=== PATIENT | female | born 1990 | race Caucasian/White ===

== ENCOUNTER → 2020-10-08 11:05 | Outpatient (BNVA) | payer OTHER, SELFPAY | PROVIDERS: Visit Provider Nurse Practitioner Family | DX: Z20.828 Contact with and (suspected) exposure to other viral communicable diseases (principal) | CPT/HCPCS: 87635 ==

== ENCOUNTER → 2021-04-25 12:12 | Outpatient (BNVA) | payer MEDICAID, SELFPAY | PROVIDERS: Visit Provider Registered Nurse Neonatal Intensive Care | DX: R05 Cough (principal) | CPT/HCPCS: 71046 ==

== ENCOUNTER → 2022-02-18 15:21 | Outpatient (BNVA) | payer SELFPAY | PROVIDERS: Visit Provider Nurse Practitioner | DX: J02.9 Acute pharyngitis, unspecified (principal) | CPT/HCPCS: 87880 ==

== ENCOUNTER 2023-02-03 15:25 | Emergency (ER) | payer MEDICAID, SELFPAY ==
[2023-02-03 15:31] VITALS: BP 163/106; PULSE 65; TEMP 36.4; O2SAT 100; BMI 36.3
--- NOTE | 2023-02-03 16:05 | CTR_ITS ---
PROCEDURE INFORMATION: Exam: CT Abdomen And Pelvis Without Contrast Exam date and time: 02/03/2023 4:41 PM Age: 32 years old Clinical indication: Abdominal pain; Flank; Right; Prior surgery; Surgery type: C-sect; Additional info: Right flank pain TECHNIQUE: Imaging protocol: Computed tomography of the abdomen and pelvis without contrast. Radiation optimization: All CT scans at this facility use at least one of these dose optimization techniques: automated exposure control; mA and/or kV adjustment per patient size (includes targeted exams where dose is matched to clinical indication); or iterative reconstruction. REPORTING DATA: Count of CT and Cardiac NM exams in prior 12 months: This patient has received 0 known CTs and 0 known cardiac nuclear medicine studies in the 12 months prior to the current study. COMPARISON: US OB limited [id number] 07/15/2019 3:22 PM RADIATION DOSE METRICS: Total DLP (mGy-cm): 1225.95 FINDINGS: Liver: Normal. No mass. Gallbladder and bile ducts: Normal. No calcified stones. No ductal dilation. Pancreas: Normal. No ductal dilation. Spleen: Normal. No splenomegaly. Adrenal glands: Normal. No mass. Kidneys and ureters: 5 mm obstructing calculus in the proximal right ureter with mild hydronephrosis. 1 mm right renal calculus. Left renal cyst, Hounsfield units less than 20. No follow-up imaging is recommended. Stomach and bowel: Unremarkable. No obstruction. No mucosal thickening. Appendix: The appendix is visualized and is normal. Intraperitoneal space: Unremarkable. No free air. No significant fluid collection. Vasculature: Unremarkable. No abdominal aortic aneurysm. Lymph nodes: Unremarkable. No enlarged lymph nodes. Urinary bladder: Unremarkable as visualized. Reproductive: Tampon in the vagina. The uterus and ovaries are unremarkable. Bones/joints: Bone island in the left femoral head. No fracture. Soft tissues: Unremarkable. CT/CT kidney stone [id number] IMPRESSION: 1. 5 mm obstructing calculus in the proximal right ureter with mild hydronephrosis. 2. 1 mm right renal calculus. COMMENTS: Consistent with the [employer]'s Incidental Findings Committee white paper (J Am Andreas Radiol 2018): Any incidental renal lesion less than 1 cm or classified as too small to characterize, or any incidental cystic renal lesion characterized as simple-appearing, is likely benign. No follow-up imaging is recommended for these lesions per consensus recommendations based on imaging criteria.
[2023-02-03 16:18] LABS: Basophils % 0.4 %; Eosinophils # 0.3 10^3/uL (0.0-0.8); Hematocrit 44.7 % (37.0-47.0); Hemoglobin 14.4 g/dL (11.5-15.3); Lymphocytes # 2.8 10^3/uL (0.8-4.8); Lymphocytes % 24.6 %; Mean Corpuscular HGB Conc 32.2 g/dL (30.0-36.0); Mean Corpuscular Volume 90.1 fl (81-99); Mean Platelet Volume 11.1 fL (7.4-10.4); Monocytes # 0.8 10^3/uL (0.2-0.9); Monocytes % 7.5 %; Neutrophils # 7.16 10^3/uL (1.8-7.7); Neutrophils % 64.2 %; Nucleated Red Blood Cells % 0 %; Platelet Count 294 10^3/cmm (130-400); Red Blood Count 4.96 10^6/uL (4.1-5.3); Red Cell Distribution Width 12.6 % (12.1-15.1); White Blood Count 11.2 10^3/uL (4.0-10.0)
[2023-02-03 16:35] LABS: HCG, Serum Qual Negative (Negative)
[2023-02-03 16:38] LABS: Alanine Aminotransferase 47 U/L (0-33); Albumin Level 4.1 g/dL (3.5-5.2); Alkaline Phosphatase 65 U/L (35-105); Anion Gap 14.6 (5-19); Blood Urea Nitrogen 12 mg/dL (6-20); Calcium 9.5 mg/dL (8.5-10.5); Carbon Dioxide 25 mmol/L (22-29); Chloride 101 mmol/L (98-107); Globulin 4.3 g/dL (1.3-4.6); Glomerular Filtration Rate 117.4 mL/min (90-130); Glucose 119 mg/dL (65-115); Lipase 29 U/L (13-60); Osmolality Calculated 285 mOsm/kg (285-295); Potassium 3.6 mmol/L (3.5-5.1); Sodium 137 mmol/L (136-145); Total Bilirubin 0.2 mg/dL (0.15-1.2); Total Protein 8.4 g/dL (6.6-8.7)
[2023-02-03 16:45] LABS: Aspartate Amino Transferase 29 U/L (0-32)
[2023-02-03] MEDS: ondansetron 2 mg/ML SDV 2 mL 4 MG IVP (16:53)
[2023-02-03 16:54] VITALS: RESP 18; O2SAT 99
[2023-02-03] MEDS: morphine 4 mg/mL SDV 1 mL IVP (16:54)
--- NOTE | 2023-02-03 16:56 | ED_ITS ---
HPI - Abdominal Pain General: Chief Complaint: Abdominal Pain Stated Complaint: right side abd pain Time Seen by Provider: 02/03/23 15:59 History of Present Illness: This patient is a 32 year old presenting with right flank pain since around 10 this morning. She says that she has had some period cramps since last night but started having the back pain on the right side and now some in the anterior right flank as well. She has had kidney stones in the past, but it's been a long time and she wasn't sure if this felt the same. She still has her appendix. She denies urinary symptoms. She has had nausea, no vomiting, no fever. Period is normal and on time. PFS ED PFSH: Family History Father Hypertension Diabetes Denies family history of Dementia Social History (Updated 04/25/21 @ 11:24 by Cyrus Landeros LPN) Smoking and tobacco status: never smoked Second hand smoke exposure: No Alcohol intake: never Desire information about alcohol rehabilitation?: No Desire information about substance/drug rehabilitation?: No Adopted: No Physical Exam Const: COMMON NORMALS: no acute distress, patient oriented x3, no limitations and alert GENERAL APPEARANCE: cooperative and comfortable HENMT: HEAD & SCALP: normal to inspection FACE & SINUS: normal facial exam Eye: GENERAL EYE: appearance normal, both eyes and all related structures Neck/C-Spine: COMMON NORMALS: supple, no meningeal signs and no JVD Chest: COMMONS NORMALS: normal inspection of the chest Resp: COMMON NORMALS: normal respiratory effort, No use of accessory muscles and clear to auscultation bilaterally AUSCULTATION: clear to auscultation bilaterally Cardio: COMMON NORMALS: no JVD, regular rate, regular rhythm and No murmurs present (Cardio) RATE: regular rate RHYTHM: regular rhythm GI: COMMON NORMALS: Normal to inspection, nondistended, normoactive bowel sounds present, Soft to palpation and non-tender INSPECTION: Yes normal to inspection AUSCULTATION: Yes normoactive bowel sounds PALPATION: Yes Soft to palpation and Yes Tenderness to palpation present (GI) Details: RLQ Back/Pelvis: COMMON NORMALS: thoracic and lumbar spine normal to inspection Extremity: COMMON NORMALS: normal to inspection Neuro: COMMON NORMALS: patient oriented x3, moves all extremities, no focal motor deficits and no sensory deficits noted SENSORIUM/ORIENTATION: Yes alert MENINGEAL SIGNS: Yes no meningeal signs Psych: COMMON NORMALS: mental status grossly normal, cooperative and normal affect Skin: COMMON NORMALS: no rashes or lesions noted and turgor normal GENERAL SKIN EXAM: no rashes or lesions noted and turgor normal Course Vital Signs: Vital signs: Vital Signs Temperature 97.5 F L 02/03/23 15:31 Pulse Rate 66 02/03/23 18:09 Respiratory Rate 18 02/03/23 16:54 Blood Pressure 114/71 02/03/23 18:09 Pulse Oximetry 96 02/03/23 18:09 Oxygen Delivery Me thod 02/03/23 18:09 MDM - Abdominal Pain Medical Decision Making Right flank pain - history of kidney stones. Colicky type pain. Pain control, CT for stones vs appendicitis vs ovarian pathology. Pain gone after morphine, zofran and toradol. CT shows a 5 mm stone, proximal right ureter. I interpreted the CT myself and also discussed and reviewed the images with the patient and her . Patient ok with outpatient management. She has seen Dr. alaniz before (many years ago) Discussed return precautions. Lab Data 02/03/23 16:06 02/03/23 16:06 Labs/Radiology: Radiology Impressions Abdomen/Pelvis CT 02/03/23 16:05 IMPRESSION: 1. 5 mm obstructing calculus in the proximal right ureter with mild hydronephrosis. 2. 1 mm right renal calculus. COMMENTS: Consistent with the [employer]'s Incidental Findings Committee white paper (J Am Andreas Radiol 2018): Any incidental renal lesion less than 1 cm or classified as too small to characterize, or any incidental cystic renal lesion characterized as simple-appearing, is likely benign. No follow-up imaging is recommended for these lesions per consensus recommendations based on imaging criteria. Laboratory Results WBC 11.2 10^3/uL (4.0-10.0) H 02/03/23 16:06 RBC 4.96 10^6/uL (4.1-5.3) 02/03/23 16:06 Hgb 14.4 g/dL (11.5-15.3) 02/03/23 16:06 Hct 44.7 % (37.0-47.0) 02/03/23 16:06 MCV 90.1 fl (81-99) 02/03/23 16:06 MCH 29.0 pg (28.0-34.0) 02/03/23 16:06 MCHC 32.2 g/dL (30.0-36.0) 02/03/23 16:06 RDW 12.6 % (12.1-15.1) 02/03/23 16:06 Plt Count 294 10^3/cmm (130-400) 02/03/23 16:06 MPV 11.1 fL (7.4-10.4) H 02/03/23 16:06 Neut % (Auto) 64.2 % 02/03/23 16:06 Lymph % (Auto) 24.6 % 02/03/23 16:06 [place] % (Auto) 7.5 % 02/03/23 16:06 Eos % (Auto) 3.0 % 02/03/23 16:06 Baso % (Auto) 0.4 % 02/03/23 16:06 Neut # (Auto) 7.16 10^3/uL (1.8-7.7) 02/03/23 16:06 Lymph # (Auto) 2.8 10^3/uL (0.8-4.8) 02/03/23 16:06 [place] # (Auto) 0.8 10^3/uL (0.2-0.9) 02/03/23 16:06 Eos # (Auto) 0.3 10^3/uL (0.0-0.8) 02/03/23 16:06 Baso # (Auto) 0.0 10^3/uL (0.0-0.1) 02/03/23 16:06 Nucleated RBC % (auto) 0 % 02/03/23 16:06 Nucleated RBCs # 0.0 /100WBC 02/03/23 16:06 Sodium 137 mmol/L (136-145) 02/03/23 16:06 Potassium 3.6 mmol/L (3.5-5.1) 02/03/23 16:06 Chloride 101 mmol/L (98-107) 02/03/23 16:06 Carbon Dioxide 25 mmol/L (22-29) 02/03/23 16:06 Anion Gap 14.6 (5-19) 02/03/23 16:06 BUN 12 mg/dL (6-20) 02/03/23 16:06 Creatinine 0.6 mg/dL (0.5-0.9) 02/03/23 16:06 GFR Calculation 117.4 mL/min (90-130) 02/03/23 16:06 Glucose 119 mg/dL (65-115) H 02/03/23 16:06 Calculated Osmolality 285 mOsm/kg (285-295) 02/03/23 16:06 Calcium 9.5 mg/dL (8.5-10.5) 02/03/23 16:06 Total Bilirubin 0.2 mg/dL (0.15-1.2) 02/03/23 16:06 AST 29 U/L (0-32) 02/03/23 16:06 ALT 47 U/L (0-33) H 02/03/23 16:06 Alkaline Phosphatase 65 U/L (35-105) 02/03/23 16:06 Total Protein 8.4 g/dL (6.6-8.7) 02/03/23 16:06 Albumin 4.1 g/dL (3.5-5.2) 02/03/23 16:06 Globulin 4.3 g/dL (1.3-4.6) 02/03/23 16:06 Lipase 29 U/L (13-60) 02/03/23 16:06 HCG, Qual Negative (Negative) 02/03/23 16:06 Urine Color Yellow (Yellow) 02/03/23 16:00 Urine Appearance Hazy (CLEAR) A 02/03/23 16:00 Urine pH 5 (5-7) 02/03/23 16:00 Ur Specific [place] 1.030 (1.005-1.030) 02/03/23 16:00 Urine Protein 1+ (Negative) H 02/03/23 16:00 Urine Glucose (UA) Norm (Normal) 02/03/23 16:00 Urine Ketones Negative (Negative) 02/03/23 16:00 Urine Blood 3+ (Negative) H 02/03/23 16:00 Urine Nitrate Negative (Negative) 02/03/23 16:00 Urine Bilirubin Neg (Negative) 02/03/23 16:00 Urine Urobilinogen Norm mg/dL (Negative) 02/03/23 16:00 Ur Leukocyte Esterase Negative (Negative) 02/03/23 16:00 Urine RBC >100 /hpf (0-2) H 02/03/23 16:00 Urine WBC 5-10 /hpf (0-5) H 02/03/23 16:00 Ur Squamous Epith Cells 5-10 /hpf (0-5) H 02/03/23 16:00 Amorphous Sediment Not Reportable 02/03/23 16:00 Urine Bacteria 1+ /hpf (NONE) H 02/03/23 16:00 Discharge Plan Discharge Patient Disposition: Home Clinical Impression: Renal colic on right side, Right kidney stone Condition: Stable Prescriptions: New oxycodone 5 mg tablet 5 mg PO Q6H PRN (Reason: pain) Qty: 14 0RF promethazine 25 mg tablet 25 mg PO TID PRN (Reason: nausea and vomiting) Qty: 10 0RF Discontinued escitalopram oxalate [Lexapro] 10 mg tablet 10 mg PO DAILY amoxicillin-pot clavulanate 875-125 mg tablet 1 tab PO Q12H 7 Days Qty: 14 0RF methylprednisolone [Medrol ([place])] 4 mg tablets,dose pack See Rx Instructions PO PER PKG DIR Qty: 21 0RF Rx Instructions: PO PER PKG DIR No Action albuterol sulfate [ProAir HFA] 90 mcg/actuation HFA aerosol inhaler 2 puff inhalation Q6H PRN (Reason: shortness of breath or wheezing) Qty: 8.5 0RF Discharge Orders: Discharge ED (Routine); Ordered 02/03/23 Ordered By: Tiny Shine Referrals: Juliette Mosley FNP [Primary Care Provider] - Alex Alaniz MD [Physician] - Patient Instructions: Abdominal Pain (ED), Opioid Safety, Pain Management Activity Restrictions/Additional Instructions: You can take 600 mg (3 over the counter tabs) every 6 hours if needed for pain. Ibuprofen works well for kidney stones. Take the oxycodone and phenergan as well for pain and nausea. You may take these along with ibuprofen. Return to the ED if fever, unable to urinate, vomiting or uncontrolled pain. Coding Level of Care Code ED Adhesive Primer for Lucy Lucio
[2023-02-03 16:58] VITALS: BP 140/86; PULSE 64; O2SAT 98
[2023-02-03] MEDS: ketorolac 30 mg/mL INJ 15 MG IVP (17:01)
[2023-02-03 17:31] LABS: Add Urine Culture? Yes; Add Urine Microscopic? YES; Bacteria Urine 1+ /hpf; Bilirubin Urine Neg (Negative); Blood Urine 3+ (Negative); Glucose Urine UA Norm (Normal); Ketones Urine Negative (Negative); Leukocyte Esterase Urine Negative (Negative); Nitrate Urine Negative (Negative); Protein Urine 1+ (Negative); RBC Urine >100 /hpf (0-2); Urine Appearance Hazy (CLEAR); Urine Color Yellow (Yellow); Urobilinogen Urine Norm (Negative); pH Urine 5 (5-7)
[2023-02-03 18:09] VITALS: BP 114/71; PULSE 66; O2SAT 96
== END 2023-02-03 18:24 | disposition home or self-care (01) ==
PROVIDERS: General Practice; Emergency Provider Emergency Medicine; PCP Nurse Practitioner Family
DX: N13.2 Hydronephrosis with renal and ureteral calculous obstruction (principal)
CPT/HCPCS: 74176; 80053; 81001; 83690; 84703; 85025; 87086; 96374; 96375; 99285; J1885; J2270; J2405

== ENCOUNTER 2023-02-12 07:46 | Outpatient (CLI) | payer MEDICAID, SELFPAY ==
--- NOTE | 2023-02-12 07:57 | XR_ITS ---
WS: [id number] XR KUB [id number] REASON FOR EXAM: Stones FINDINGS: Mid right ureteral calculus in the same position (right L4 transverse process level) as demonstrated on the CT scan of 02/03/2023. No other significant or new findings. XR/XR KUB [id number] IMPRESSION: Right ureteral calculus as above.
== END 2023-02-12 07:47 | disposition home or self-care (01) ==
LOC: RAD 07:50
PROVIDERS: PCP Nurse Practitioner Family; Visit Provider Urology
DX: N20.0 Calculus of kidney (principal); N20.1 Calculus of ureter
CPT/HCPCS: 74018; 81003; 99203

== ENCOUNTER 2023-02-26 06:57 | Outpatient (CLI) | payer MEDICAID, SELFPAY ==
--- NOTE | 2023-02-26 07:05 | XR_ITS ---
WS: [id number] KUB, AP erect view, 02/26/2023 Clinical Data: STONES Comparison: KUB, 02/12/2023 Findings: No abnormal intraabdominal masses are seen. There is no dilatated small bowel or evidence of obstruct ion. There is a calcification in the right pelvis which is probably the ureteral calculus which has migrat ed into the bladder or right UVJ Impression: Probable migration of right mid ureteral calculus into the bladder or right UVJ.
== END 2023-02-26 06:58 | disposition home or self-care (01) ==
LOC: RAD 06:59
PROVIDERS: PCP Nurse Practitioner Family; Visit Provider Urology
DX: N20.0 Calculus of kidney (principal); N20.1 Calculus of ureter
CPT/HCPCS: 74018; 81003; 99213

== ENCOUNTER 2023-10-27 10:22 | Emergency (ER) | payer MEDICAID, SELFPAY ==
[2023-10-27] VITALS (8 sets, daily range): BP systolic 109–144; BP diastolic 75–97; PULSE 87–92; RESP 17; TEMP 36.8; O2SAT 97–98
[2023-10-27 11:07] LABS: Basophils % 0.2 %; Eosinophils # 0.2 10^3/uL (0.0-0.8); Eosinophils % 2.7 %; Hematocrit 46.7 % (36-47); Lymphocytes # 1.8 10^3/uL (0.8-4.8); Lymphocytes % 21.7 %; Mean Corpuscular Hemoglobin 29.4 pg (27-33); Mean Corpuscular Volume 89.1 fl (85-98); Mean Platelet Volume 10.9 fL (7.4-10.4); Monocytes # 0.4 10^3/uL (0.2-0.9); Monocytes % 5.3 %; Neutrophils # 5.65 10^3/uL (1.8-7.7); Neutrophils % 69.9 %; Nucleated Red Blood Cells % 0 %; Platelet Count 265 10^3/cmm (157-399); Red Blood Count 5.24 10^6/uL (3.85-5.65); Red Cell Distribution Width 12.8 % (12.1-15.1)
[2023-10-27 12:19] LABS: Alanine Aminotransferase 47 U/L (0-33); Albumin Level 4.7 g/dL (3.5-5.2); Alkaline Phosphatase 62 U/L (35-105); Anion Gap 17.2 (5-19); Aspartate Amino Transferase 33 U/L (0-32); Blood Urea Nitrogen 11 mg/dL (6-20); Calcium 10.1 mg/dL (8.5-10.5); Carbon Dioxide 23 mmol/L (22-29); Chloride 101 mmol/L (98-107); Glomerular Filtration Rate 116.6 mL/min (90-130); Glucose 112 mg/dL (65-115); Osmolality Calculated 284 mOsm/kg (285-295); Potassium 4.2 mmol/L (3.5-5.1); Sodium 137 mmol/L (136-145); Total Bilirubin 0.4 mg/dL (0.15-1.2); Total Protein 8.7 g/dL (6.6-8.7)
[2023-10-27 12:28] LABS: Glucose Urine UA Norm (Normal); Ketones Urine 1+ (Negative); Protein Urine 1+ (Negative); Specific Gravity, Urine 1.025 (1.005-1.030); Urine Appearance Cloudy (CLEAR); Urine Color Yellow (Yellow); pH Urine 5 (5-7)
[2023-10-27 12:29] LABS: Add Urine Culture? Yes; Bacteria Urine 2+ /hpf; Bilirubin Urine 1+ (Negative); Blood Urine 3+ (Negative); Leukocyte Esterase Urine 2+ (Negative); Nitrate Urine Negative (Negative); RBC Urine 15-25 /hpf (0-2); Urobilinogen Urine Norm (Negative); WBC Urine 25-40 /hpf (0-5)
--- NOTE | 2023-10-27 12:43 | USR_ITS ---
PROCEDURE INFORMATION: Exam: US Pelvis, Transvaginal Exam date and time: 10/27/2023 1:19 PM Age: 33 years old Clinical indication: Other: Bleeding; Patient HX: Hcg 1369; Additional info: Vaginal bleeding /cramping TECHNIQUE: Imaging protocol: Real-time transvaginal pelvic ultrasound with image documentation. Transvaginal imaging was used for better evaluation of the endometrium, adnexa, and/or cervix. COMPARISON: CT kidney stone [id number] 02/03/2023 4:41 PM FINDINGS: Uterus: Uterus is normal, and measures 3.3 x 3.7 x 6.9 centimeters. Endometrial stripe is normal, measuring 0.8 centimeters. No intrauterine . No uterine fibroids. Right ovary/adnexa: 2.4 x 1.6 x 2 centimeters. Normal. No mass. Normal ovarian blood flow. Left ovary/adnexa: 2.3 x 1.9 x 3.5 centimeters. Left ovarian cyst measuring 1.1 centimeters. Normal. No mass. Normal ovarian blood flow. Intraperitoneal space: Simple free fluid in the right adnexa. US/US transvaginal [id number] IMPRESSION: 1. No intrauterine . 2. Preserved bilateral intra-ovarian blood flow. 3. Simple free fluid in the right adnexa. There is no evidence of intrauterine , in the setting of a positive beta-HCG and no ultrasonographic evidence of intrauterine gestation; ectopic cannot be ruled out. Serial Beta hCG examinations are recommended.
[2023-10-27] MEDS: acetaminophen 500 mg Tablet 1000 MG PO (13:02)
[2023-10-27] MEDS: cefTRIAXone 1,000 MG in sodium chloride 0.9% (plus) 50 ML 100 MG IV (13:07)
--- NOTE | 2023-10-27 13:08 | ED_ITS ---
HPI - 2 General: Chief complaint: Vaginal Bleeding Stated complaint: bleeding, 6 weeks Time Seen by Provider: 10/27/23 10:33 History of Present Illness: 33-year-old female presents to the emerg ency department with complaints that she started having some vaginal bleeding this morning. She states that she noticed a small amount after having a bowel movement. She states that has since stopped but she feels like she is having some vaginal pain at this point. She denies noticing clots or tissue. She states she is approximately 6 weeks but has not had her first [facility] appointment. She states she became concerned because the bleeding appeared to be bright red vaginal bleeding. And shortly afterwards she stated she started having some intermittent lower abdominal cramping. She does appear to be very tearful and nervous. Date of Last Menstrual Period: 09/15/23 Related Data: : 2 Review of Systems 2 General: Reports: 10 or more systems reviewed and unremarkable except in HPI and below GI: Reports: GI cramping : Reports: vaginal bleeding PFSH ED 2 PFSH: Medical History No pertinent past medical history neghx: htn,dm,thyroid,dvt/pe PCP: Juliette Mosley Surgical History H/O: Classical Family History Father Hypertension Diabetes Heart disease Hyperlipidemia Grandmother Colon cancer maternal Denies family history of Ovarian cancer Prostate cancer Dementia Breast cancer Uterine cancer Thyroid disease Stroke Female Reproductive History: Date of last menstrual period: 09/15/23 G ravida: 2 Physical Exam 2 Narrative: EXAM NARRATIVE: Constitutional: the patient appears well nourished and with normal development. Vital signs reviewed as documented. HENMT: Normocephalic, atraumatic. Extermal ears with normal appearance without drainage. Nose without drainage, normal appearance. Mucus membranes moist. Neck is supple, No jugular venous distension, trachea is midline, no appreciable carotid bruits. No lymphadenopathy. No meningeal signs. Flexion, extension and lateral rotation is without pain. Eyes: Pupils are equal, round, reactive to light and accommodation. No scleral icterus. Extra-ocular movement are intact. Thorax is symmetrical and with equal rise and fall with respirations. Resp: Lungs are clear to auscultation. No wheezes, rales, crackles or ronchi at present. Cardio: Regular rate and rhythm. Positive S1, S2. No appreciable murmurs, rubs or gallops. GI: Abdominal exam reveals normal bowel sounds to all quadrants. No organomegaly. No obvious palpable masses noted. No hepatomegally appreciated. Soft, nontender to palpation. Extremity: Extremities are non-edematous and both femoral and pedal pulses are 2+ and equal bilaterally. Moves all extremities well, sensation in all extremities. Neuro: Alert and oriented x4, person, place, time and situation. Cranial nerves II through XII are grossly intact, there is no focal neurological deficits that I can appreciate at present. Motor strength in the upper and lower extremities are equal and bilateral 5/5. Psych: Cooperative, calm, normal thought process, appropriate judgment. Skin: No lesions, rashes. No gross abnormalities noted. Back: Symmetrical, no obvious deformity, No CVA tenderness Course 2 Vital Signs: Vital signs: Vital Signs Temperature 98.2 F 10/27/23 10:33 Pulse Rate 92 10/27/23 14:59 Respiratory Rate 17 10/27/23 10:33 Blood Pressure 125/89 10/27/23 14:59 Pulse Oximetry 98 10/27/23 14:59 Oxygen Delivery Me thod Room Air 10/27/23 14:19 MDM - OB/Uterine Contractions Medical Decision Making Physical exam completed and documented, I will obtain a CBC, CMP urinalysis and quantitative hCG. I will obtain a ultrasound to confirm intrauterine and evaluate her vaginal bleeding. I reviewed the patient's urinalysis and it does appear that she has urinary tract infection I will provide her IV antibiotics as well as Tylenol pain medication for her abdominal cramping. Medical Records I reviewed the patient's medical records. Lab Data I reviewed the patient's lab results. 10/27/23 10:58 10/27/23 10:58 Radiology Impressions Transvaginal US 10/27/23 12:43 IMPRESSION: 1. No intrauterine . 2. Preserved bilateral intra-ovarian blood flow. 3. Simple free fluid in the right adnexa. There is no evidence of intrauterine , in the setting of a positive beta-HCG and no ultrasonographic evidence of intrauterine gestation; ectopic cannot be ruled out. Serial Beta hCG examinations are recommended. Laboratory Results WBC 8.10 10^3/uL (3.29-11.43) 10/27/23 10:58 RBC 5.24 10^6/uL (3.85-5.65) 10/27/23 10:58 Hgb 15.40 g/dL (11.27-16.99) 10/27/23 10:58 Hct 46.7 % (36-47) 10/27/23 10:58 MCV 89.1 fl (85-98) 10/27/23 10:58 MCH 29.4 pg (27-33) 10/27/23 10:58 MCHC 33.0 g/dL (30-55) 10/27/23 10:58 RDW 12.8 % (12.1-15.1) 10/27/23 10:58 Plt Count 265 10^3/cmm (157-399) 10/27/23 10:58 MPV 10.9 fL (7.4-10.4) H 10/27/23 10:58 Neut % (Auto) 69.9 % 10/27/23 10:58 Lymph % (Auto) 21.7 % 10/27/23 10:58 [place] % (Auto) 5.3 % 10/27/23 10:58 Eos % (Auto) 2.7 % 10/27/23 10:58 Baso % (Auto) 0.2 % 10/27/23 10:58 Neut # (Auto) 5.65 10^3/uL (1.8-7.7) 10/27/23 10:58 Lymph # (Auto) 1.8 10^3/uL (0.8-4.8) 10/27/23 10:58 [place] # (Auto) 0.4 10^3/uL (0.2-0.9) 10/27/23 10:58 Eos # (Auto) 0.2 10^3/uL (0.0-0.8) 10/27/23 10:58 Baso # (Auto) 0.0 10^3/uL (0.0-0.1) 10/27/23 10:58 Nucleated RBC % (auto) 0 % 10/27/23 10:58 Nucleated RBCs # 0.0 /100WBC 10/27/23 10:58 Sodium 137 mmol/L (136-145) 10/27/23 10:58 Potassium 4.2 mmol/L (3.5-5.1) 10/27/23 10:58 Chloride 101 mmol/L (98-107) 10/27/23 10:58 Carbon Dioxide 23 mmol/L (22-29) 10/27/23 10:58 Anion Gap 17.2 (5-19) 10/27/23 10:58 BUN 11 mg/dL (6-20) 10/27/23 10:58 Creatinine 0.6 mg/dL (0.5-0.9) 10/27/23 10:58 GFR Calculation 116.6 mL/min (90-130) 10/27/23 10:58 Glucose 112 mg/dL (65-115) 10/27/23 10:58 Calculated Osmolality 284 mOsm/kg (285-295) L 10/27/23 10:58 Calcium 10.1 mg/dL (8.5-10.5) 10/27/23 10:58 Total Bilirubin 0.4 mg/dL (0.15-1.2) 10/27/23 10:58 AST 33 U/L (0-32) H 10/27/23 10:58 ALT 47 U/L (0-33) H 10/27/23 10:58 Alkaline Phosphatase 62 U/L (35-105) 10/27/23 10:58 Total Protein 8.7 g/dL (6.6-8.7) 10/27/23 10:58 Albumin 4.7 g/dL (3.5-5.2) 10/27/23 10:58 Globulin 4.0 g/dL (1.3-4.6) 10/27/23 10:58 Ser , Semi-Qnt 1369.00 mIU/mL 10/27/23 10:58 Urine Color Yellow (Yellow) 10/27/23 11:07 Urine Appearance Cloudy (CLEAR) A 10/27/23 11:07 Urine pH 5 (5-7) 10/27/23 11:07 Ur Specific [place] 1.025 (1.005-1.030) 10/27/23 11:07 Urine Protein 1+ (Negative) H 10/27/23 11:07 Urine Glucose (UA) Norm (Normal) 10/27/23 11:07 Urine Ketones 1+ (Negative) H 10/27/23 11:07 Urine Blood 3+ (Negative) H 10/27/23 11:07 Urine Nitrate Negative (Negative) 10/27/23 11:07 Urine Bilirubin 1+ (Negative) H 10/27/23 11:07 Urine Urobilinogen Norm mg/dL (Negative) 10/27/23 11:07 Ur Leukocyte Esterase 2+ (Negative) H 10/27/23 11:07 Urine RBC 15-25 /hpf (0-2) H 10/27/23 11:07 Urine WBC 25-40 /hpf (0-5) H 10/27/23 11:07 Ur Squamous Epith Cells 5-10 /hpf (0-5) H 10/27/23 11:07 Amorphous Sediment Not Reportable 10/27/23 11:07 Urine Bacteria 2+ /hpf (NONE) H 10/27/23 11:07 All radiology interpretation(s) finalized by discharge Discharge Plan Discharge Patient Disposition: Home Clinical Impression: Vaginal bleeding during , Urinary tract infection Condition: Stable Prescriptions: No Action albuterol sulfate 90 mcg/actuation HFA aerosol inhaler 2 puff inhalation Q6H PRN tramadol 50 mg tablet 50 mg PO BID PRN prednisone 10 mg tablets,dose pack See Rx Instructions PO PER PKG DIR Qty: 21 0RF Rx Instructions: PO PER PKG DIR hydroxyzine HCl 10 mg tablet 10 mg PO .HS PRN (Reason: anxiety) Qty: 14 0RF acetaminophen 325 mg capsule 325 mg PO Q4H PRN (Reason: fever or pain) Qty: 60 0RF Discharge Orders: Discharge ED (Routine); Ordered 10/27/23 Ordered By: Zhou Tamez Referrals: Juliette Mosley FNP [Primary Care Provider] - Discharge Diet: Advance as tolerated Discharge Activity: Resume usual activity Patient Instructions: Opioid Safety, Pain Management Activity Restrictions/Additional Instructions: Activity Restrictions/Additional Instructions: Thank you for choosing [facility] for your healthcare needs today. Please realize that you were seen in the Emergency Department and that we are providing you with an emergency medical screening exam and this may not be a complete and all inclusive of all the testing and or medical work-up that you may need to determine your ailment or severity of your illness. It is very important that you follow-up as instructed with your Primary care provider or Specialist for additional evaluation and to discuss your medical treatment plan. You may return to the Emergency Department should you have concerns or if your condition changes or worsens in any way. Coding Level of Care Code ED Chief Merchandising Officer for Lucy Lucio
== END 2023-10-27 15:05 | disposition home or self-care (01) ==
PROVIDERS: Emergency Provider Internal Medicine; PCP Nurse Practitioner Family
DX: O46.91 Antepartum hemorrhage, unspecified, first trimester (principal); O23.11 Infections of bladder in pregnancy, first trimester; Z3A.01 Less than 8 weeks gestation of pregnancy
CPT/HCPCS: 76830; 80053; 81001; 84702; 85025; 87086; 96365; 96366; 99284; J0696

== ENCOUNTER → 2023-10-29 09:42 | Outpatient (BNVA) | payer MEDICAID, SELFPAY | PROVIDERS: PCP Nurse Practitioner Family; Visit Provider Nurse Practitioner Women's Health | DX: Z32.00 Encounter for pregnancy test, result unknown (principal); O20.0 Threatened abortion; Z3A.00 Weeks of gestation of pregnancy not specified | CPT/HCPCS: 81025; 84702 ==

== ENCOUNTER 2023-10-30 14:02 | Outpatient (CLI) | payer MEDICAID, SELFPAY ==
[2023-10-30 14:39] LABS: Basophils % 0.4 %; Eosinophils # 0.3 10^3/uL (0.0-0.8); Eosinophils % 3.4 %; Lymphocytes # 2.2 10^3/uL (0.8-4.8); Lymphocytes % 22.9 %; Mean Corpuscular HGB Conc 33.3 g/dL (30-55); Mean Corpuscular Hemoglobin 29.4 pg (27-33); Mean Corpuscular Volume 88.1 fl (85-98); Mean Platelet Volume 11.6 fL (7.4-10.4); Monocytes # 0.7 10^3/uL (0.2-0.9); Monocytes % 6.9 %; Neutrophils # 6.24 10^3/uL (1.8-7.7); Neutrophils % 66.2 %; Nucleated Red Blood Cells % 0 %; Platelet Count 299 10^3/cmm (157-399); Red Blood Count 4.77 10^6/uL (3.85-5.65); White Blood Count 9.43 10^3/uL (3.29-11.43)
== END 2023-10-30 14:03 | disposition home or self-care (01) ==
LOC: LAB 14:03
PROVIDERS: PCP Nurse Practitioner Family; Visit Provider Nurse Practitioner Women's Health
DX: O20.0 Threatened abortion (principal); Z3A.00 Weeks of gestation of pregnancy not specified
CPT/HCPCS: 36415; 76817; 85025; 86850; 86900

== ENCOUNTER 2023-10-31 13:08 | Oncology outpatient (recurring) (ONCR) | payer SELFPAY ==
--- OUTSIDE RECORDS SUMMARY | 2023-10-31 13:11 | XMS_ITS | Continuity of Care Document ---
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 Name Role Phone Unavailable Unavailable Unavailable Problems Condition Type Effective Dates (start - stop) Clini josh Status Comments No Known Problems Procedures Procedure Date PSYTX PT&/FAMILY 30 MINUTES PSYTX PT&/FAMILY 30 MINUTES PSYTX PT&/FAMILY 30 MINUTES Advance Directives Directive Yes / No Effective Date File Name No Information Encounters Encounter Description Practice Location Reason(s) For Visit Diagnoses Date Provider Providers Copied on Encounter PSYTX PT&/FAMILY 30 MINUTES [facility], [id number], [id number], [place] tel:[phone] Behavioral Health Integration Adjustment disorder with mixed anxiety and depressed mood Dec-1 - 9 No Information PSYTX PT&/FAMILY 30 MINUTES [facility], [id number], [id number], [place] tel:[phone] Behavioral Health Integration Adjustment disorder with mixed anxiety and depressed mood Dec-1 0- 9 No Information PSYTX PT&/FAMILY 30 MINUTES [facility], [id number], [id number], [place] tel:[phone] Behavioral Health Integration Adjustment disorder with mixed anxiety and depressed mood Dec-0 -201 9 No Information Family History Family Member Type Diagnosis Age At Onset No Information Payers Payer name Insurance type Covered libertarian ID Authoriza tion(s) No Information Social History Type Description Quantity Date Captured Comments Sex Female Smoking Status No Information Chief Complaint And Reason For Visit No Information Reason For Referral Reason For Referral No Information History Of Present Illness Encounter Date Complaint History Of Prese nt Illness No Information Functional Status Date Functional Assessmen t No Information Instructions Date Instruction Additional Infor mation No Information Assessments Type Assessment Date assessment Adjustment disorder with mixed a nxiety and depressed mood Patient Care Teams Name Effective Dates (start - stop) Status Members No Information
[2023-10-31 14:20] VITALS: BP 120/82; PULSE 85; RESP 16; TEMP 36.8; O2SAT 99
[2023-10-31 14:33] VITALS: BP 117/82; PULSE 83; RESP 16; TEMP 37.1; O2SAT 98
[2023-10-31 14:40] VITALS: BP 119/86; PULSE 78; RESP 16; O2SAT 99
== END 2023-11-10 23:59 | disposition home or self-care (01) ==
LOC: ONCMED 13:10
PROVIDERS: PCP Nurse Practitioner Family; Visit Provider Obstetrics & Gynecology
DX: O00.90 Unspecified ectopic pregnancy without intrauterine pregnancy (principal)
CPT/HCPCS: 84702; J9260

== ENCOUNTER 2023-11-04 21:41 | Observation (INO) | payer SELFPAY ==
[2023-11-04 21:45] VITALS: BP 134/96; PULSE 87; RESP 17; TEMP 37.1; O2SAT 100; BMI 37.5
--- NOTE | 2023-11-04 22:26 | USR_ITS ---
PROCEDURE INFORMATION: Exam: US Pelvis Complete, Transabdominal and US Pelvis, Transvaginal Exam date and time: 11/04/2023 10:53 PM Age: 33 years old Clinical indication: Patient HX: Patient was diagnosed with left ectopic on 10/30 here, referred to Dr. Moe 10/31. Methotrexate injection 10/31. Now complaining of continued vaginal bleeding and increased left pelvic pain. ; Additional info: Pelvic pain HX ectopic. LABS AND CLINICAL REPORTS: Last menstrual period start date: Unknown TECHNIQUE: Imaging protocol: Real-time complete transabdominal and transvaginal pelvic ultrasound with image documentation. Transvaginal imaging was used for better evaluation of the endometrium, adnexa, and/or cervix. COMPARISON: US OB <=14 wk fetus w transvag 10/27/2023 1:19 PM FINDINGS: Uterus: Uterus measures 8 cm x 4.9 cm x 3.8 cm. 8.0 x 3.8 x 4.9 cm. In homogeneous endometrium measuring 12.7 mm. Right ovary/adnexa: Right ovary measures 1.6 cm x 1.8 cm x 0.9 cm. Right ovarian volume is 1.3 mL. Normal blood flow. Left ovary/adnexa: Left ovary measures 2.1 cm x 2.4 cm x 1.5 cm. Left ovarian volume is 3.8 mL. Stable 1.1 cm follicle or cyst. Normal blood flow. 2.6 x 2.6 x 5.1 cm inhomogeneous structure with internal vascularity posterior and inferior to the left ovary. No ectopic gestational sac or pole is visualized. Intraperitoneal space: No intraperitoneal fluid. Urinary bladder: Normal. US/US pelvic limited [id number] IMPRESSION: 1. No intrauterine gestation identified. 2. Persistent 5.1 cm inhomogeneous structure posterior and inferior to the left ovary. This remains suspicious for a residual ectopic . No gestational sac or pole is visualized. Correlation with quantitative beta HCG values is recommended. 3. No free intraperitoneal blood visualized.
[2023-11-04 22:35] VITALS: RESP 18; O2SAT 97
[2023-11-04] MEDS: morphine 4 mg/mL SDV 1 mL IVP (22:35)
[2023-11-04] MEDS: ondansetron 2 mg/ML SDV 2 mL 4 MG IVP ×2 (22:36→23:33)
[2023-11-04 22:50] LABS: Basophils % 0.3 %; Eosinophils # 0.2 10^3/uL (0.0-0.8); Eosinophils % 3.3 %; Hematocrit 40.4 % (36-47); Lymphocytes # 1.6 10^3/uL (0.8-4.8); Mean Corpuscular HGB Conc 32.2 g/dL (30-55); Mean Corpuscular Hemoglobin 29.1 pg (27-33); Mean Corpuscular Volume 90.4 fl (85-98); Mean Platelet Volume 11.1 fL (7.4-10.4); Monocytes # 0.4 10^3/uL (0.2-0.9); Monocytes % 6.7 %; Neutrophils # 4.05 10^3/uL (1.8-7.7); Neutrophils % 64.4 %; Nucleated Red Blood Cells % 0 %; Platelet Count 272 10^3/cmm (157-399); Red Blood Count 4.47 10^6/uL (3.85-5.65); Red Cell Distribution Width 12.8 % (12.1-15.1); White Blood Count 6.29 10^3/uL (3.29-11.43)
[2023-11-04 23:09] LABS: Alanine Aminotransferase 36 U/L (0-33); Albumin Level 4.2 g/dL (3.5-5.2); Alkaline Phosphatase 56 U/L (35-105); Anion Gap 15.7 (5-19); Aspartate Amino Transferase 22 U/L (0-32); Blood Urea Nitrogen 7 mg/dL (6-20); C Reactive Protein 39.3 mg/L (0.0-4.9); Calcium 10.1 mg/dL (8.5-10.5); Carbon Dioxide 27 mmol/L (22-29); Chloride 101 mmol/L (98-107); Globulin 3.8 g/dL (1.3-4.6); Glomerular Filtration Rate 116.6 mL/min (90-130); Glucose 92 mg/dL (65-115); Lipase 20 U/L (13-60); Osmolality Calculated 288 mOsm/kg (285-295); Potassium 3.7 mmol/L (3.5-5.1); Sodium 140 mmol/L (136-145); Total Bilirubin 0.2 mg/dL (0.15-1.2)
[2023-11-04 23:10] LABS: Lactic Sepsis W/Reflex 1.1 mmol/L (0.5-2.2)
[2023-11-04 23:12] LABS: Add Urine Microscopic? YES; Bacteria Urine 1+ /hpf; Bilirubin Urine Neg (Negative); Blood Urine 3+ (Negative); Glucose Urine UA Norm (Normal); Ketones Urine 1+ (Negative); Leukocyte Esterase Urine 1+ (Negative); Nitrate Urine Negative (Negative); Protein Urine Trace (Negative); RBC Urine 80-100 /hpf (0-2); Urine Appearance Cloudy (CLEAR); Urine Color Yellow (Yellow); Urobilinogen Urine Norm (Negative); WBC Urine 25-40 /hpf (0-5); pH Urine 6 (5-7)
[2023-11-04 23:13] LABS: Add Urine Culture? Yes; Amorphous Sediment Urine 1+ /hpf; Coarse Granular Casts Urine 0-4 /lpf; Mucus Urine 2+ /hpf
--- NOTE | 2023-11-04 23:28 | ED_ITS ---
Documented by User: RENATE Castro 11/05/23 00:54 HPI - Abdominal Pain 2 General: Chief Complaint: Abdominal Pain Stated Complaint: abd pain/pt states eptopic preg. Time Seen by Provider: 11/04/23 22:30 History of Present Illness: Fitz is a 33-year-old female that is approximately 7 weeks with a left ovarian ectopic . Patient has been in treatment with Dr. Moe. Has received medical management for ectopic but instructed to come to the emergency department should she develop any abdominal pain. She has been on pelvic rest as well as avoidance of any strenuous activity. Mrs. Buck 33 y/o female with a certain LMP at 09/15/23 with hx of vaginal bleeding, initially supected of threaten AB, quantitative hCG with inadequate increase from 1369 to 1469 mIU/mL. With a normal progressing the expected increase nearly double of previous value. Serial US shows an empty uterus and suspected ectopic left tubal . Due to the patient's OB history and desire to preserve the fallopian tube, medical management recommended with Methotrexate. Her and her were counseled regarding the all treatment options and still the possibility of surgical management if medical management fail or if ectopic ruptures. She was counseled also regarding abstaining from strenuous physical activity and to continue on pelvic rest. Due to this state current political stand regarding termination this case was consulted with hospital compliance field technician/office and after review and following recommended procedural algorithm treatment acceptable. Associated Symptoms: Denies chills, dysuria and fever(s) Review of Systems 2 General: Reports: 10 or more systems reviewed and unremarkable except in HPI and below Const: Denies: fever(s) or chills ENMT: Denies: throat pain Card: Denies: chest pain Resp: Denies: dyspnea, productive cough or non-productive cough GI: Denies: abdominal pain : Reports: vaginal bleeding and pelvic pain (left side); Denies: flank pain, difficulty voiding, dysuria, urinary frequency, urinary urgency, urinary incontinence, genital lesions, genital pruritis, vaginal dryness, vaginal odor, vaginal discharge, dysmenorrhea, irregular period, metrorrhagia, amenorrhea, prolapse symptoms or dyspareunia PFS ED 2 PFSH: Medical History (Updated 12/27/23 @ 15:23 by Mg Bustos, DO) No pertinent past medical history neghx: htn,dm,thyroid,dvt/pe PCP: Juliette Mosley Surgical History (Updated 10/29/23 @ 09:50 by Radha Lynch APN, J CARLOS) H/O: Classical Family History Father Hypertension Diabetes Heart disease Hyperlipidemia Grandmother Colon cancer maternal Denies family history of Ovarian cancer Prostate cancer Dementia Breast cancer Uterine cancer Thyroid disease Stroke Physical Exam 2 Const: COMMON NORMALS: no acute distress, average body habitus and patient oriented x3 GENERAL APPEARANCE: cooperative and well kempt HENMT: COMMON NORMALS: normocephalic and atraumatic HEAD & SCALP: n ormocephalic and atraumatic Neck/C-Spine: COMMON NORMALS: full ROM Chest: COMMONS NORMALS: normal inspection of the chest Resp: COMMON NORMALS: normal respiratory effort Cardio: COMMON NORMALS: regular rate and regular rhythm RATE: regular rate RHYTHM: regular rhythm GI: COMMON NORMALS: Normal to inspection, nondistended, normoactive bowel sounds present, Soft to palpation and non-tender INSPECTION: Yes normal to inspection PALPATION: Yes Soft to palpation OTHER: Largely nontender however does have some mild discomfort intermittently. No peritoneal signs Neuro: COMMON NORMALS: patient oriented x3 Psych: APPEARANCE: Yes well kempt Course 2 Vital Signs: Vital signs: Vital Signs Temperature 98.1 F 11/06/23 12:00 Pulse Rate 82 11/06/23 12:00 Respiratory Rate 18 11/06/23 12:00 Blood Pressure 114/71 11/06/23 12:00 Pulse Oximetry 96 11/06/23 12:00 Oxygen Delivery Me thod Room Air 11/05/23 02:18 MDM - Abdominal Pain Medical Decision Making Patient was evaluated in the emergency department We obtained an ultrasound?pelvic and laboratory studies Hemoglobin and hematocrit remained stable. She does describe some vaginal bleeding but bleeding is not brisk The pelvic ultrasound appears to reveal changed stable inhomogeneous pelvic structure Dr. Whitmore was consulted to review. Awaiting his evaluation. Dr. Bustos will assume care Lab Data 11/04/23 22:05 11/04/23 22:05 Labs/Radiology: Radiology Impressions Pelvis Ultrasound 11/04/23 22:26 IMPRESSION: 1. No intrauterine gestation identified. 2. Persistent 5.1 cm inhomogeneous structure posterior and inferior to the left ovary. This remains suspicious for a residual ectopic . No gestational sac or pole is visualized. Correlation with quantitative beta HCG values is recommended. 3. No free intraperitoneal blood visualized. Pelvic/Transvag US 11/06/23 07:00 IMPRESSION: 1. No visible intrauterine gestation. 2. Stable left adnexal mass. Possible ectopic . Neoplasm not excluded. Laboratory Results WBC 6.29 10^3/uL (3.29-11.43) 11/04/23 22:05 RBC 4.47 10^6/uL (3.85-5.65) 11/04/23 22:05 Hgb 13.00 g/dL (11.27-16.99) 11/04/23 22:05 Hct 40.4 % (36-47) 11/04/23 22:05 MCV 90.4 fl (85-98) 11/04/23 22:05 MCH 29.1 pg (27-33) 11/04/23 22:05 MCHC 32.2 g/dL (30-55) 11/04/23 22:05 RDW 12.8 % (12.1-15.1) 11/04/23 22:05 Plt Count 272 10^3/cmm (157-399) 11/04/23 22:05 MPV 11.1 fL (7.4-10.4) H 11/04/23 22:05 Neut % (Auto) 64.4 % 11/04/23 22:05 Lymph % (Auto) 25.0 % 11/04/23 22:05 [place] % (Auto) 6.7 % 11/04/23 22:05 Eos % (Auto) 3.3 % 11/04/23 22:05 Baso % (Auto) 0.3 % 11/04/23 22:05 Neut # (Auto) 4.05 10^3/uL (1.8-7.7) 11/04/23 22:05 Lymph # (Auto) 1.6 10^3/uL (0.8-4.8) 11/04/23 22:05 [place] # (Auto) 0.4 10^3/uL (0.2-0.9) 11/04/23 22:05 Eos # (Auto) 0.2 10^3/uL (0.0-0.8) 11/04/23 22:05 Baso # (Auto) 0.0 10^3/uL (0.0-0.1) 11/04/23 22:05 Nucleated RBC % (auto) 0 % 11/04/23 22:05 Nucleated RBCs # 0.0 /100WBC 11/04/23 22:05 Sodium 140 mmol/L (136-145) 11/04/23 22:05 Potassium 3.7 mmol/L (3.5-5.1) 11/04/23 22:05 Chloride 101 mmol/L (98-107) 11/04/23 22:05 Carbon Dioxide 27 mmol/L (22-29) 11/04/23 22:05 Anion Gap 15.7 (5-19) 11/04/23 22:05 BUN 7 mg/dL (6-20) 11/04/23 22:05 Creatinine 0.6 mg/dL (0.5-0.9) 11/04/23 22:05 GFR Calculation 116.6 mL/min (90-130) 11/04/23 22:05 Glucose 92 mg/dL (65-115) 11/04/23 22:05 Calculated Osmolality 288 mOsm/kg (285-295) 11/04/23 22:05 Lactic Acid 1.1 mmol/L (0.5-2.2) 11/04/23 22:05 Calcium 10.1 mg/dL (8.5-10.5) 11/04/23 22:05 Total Bilirubin 0.2 mg/dL (0.15-1.2) 11/04/23 22:05 AST 22 U/L (0-32) 11/04/23 22:05 ALT 36 U/L (0-33) H 11/04/23 22:05 Alkaline Phosphatase 56 U/L (35-105) 11/04/23 22:05 C-Reactive Protein 39.3 mg/L (0.0-4.9) H 11/04/23 22:05 Total Protein 8.0 g/dL (6.6-8.7) 11/04/23 22:05 Albumin 4.2 g/dL (3.5-5.2) 11/04/23 22:05 Globulin 3.8 g/dL (1.3-4.6) 11/04/23 22:05 Lipase 20 U/L (13-60) 11/04/23 22:05 Procalcitonin 0.10 ng/mL (0-0.5) 11/04/23 22:05 Ser , Semi-Qnt 2910.00 mIU/mL 11/04/23 22:05 Urine Color Yellow (Yellow) 11/04/23 22:48 Urine Appearance Cloudy (CLEAR) A 11/04/23 22:48 Urine pH 6 (5-7) 11/04/23 22:48 Ur Specific [place] 1.020 (1.005-1.030) 11/04/23 22:48 Urine Protein Trace (Negative) 11/04/23 22:48 Urine Glucose (UA) Norm (Normal) 11/04/23 22:48 Urine Ketones 1+ (Negative) H 11/04/23 22:48 Urine Blood 3+ (Negative) H 11/04/23 22:48 Urine Nitrate Negative (Negative) 11/04/23 22:48 Urine Bilirubin Neg (Negative) 11/04/23 22:48 Urine Urobilinogen Norm mg/dL (Negative) 11/04/23 22:48 Ur Leukocyte Esterase 1+ (Negative) H 11/04/23 22:48 Urine RBC 80-100 /hpf (0-2) H 11/04/23 22:48 Urine WBC 25-40 /hpf (0-5) H 11/04/23 22:48 Ur Squamous Epith Cells 5-10 /hpf (0-5) H 11/04/23 22:48 Amorphous Sediment 1+ /hpf 11/04/23 22:48 Urine Bacteria 1+ /hpf (NONE) H 11/04/23 22:48 Coarse Granular Casts 0-4 /lpf H 11/04/23 22:48 Urine Mucus 2+ /hpf 11/04/23 22:48 Blood Type O Negative 11/04/23 22:35 Rho(D) Type Negative 11/04/23 22:35 Antibody Screen Negative 11/04/23 22:35 All radiology interpretation(s) finalized by discharge Discharge Plan Discharge Patient Disposition: Admitted As Inpatient Admit Provider: Edmar Whitmore Clinical Impression: Ectopic of left ovary Condition: Stable Discharge Diet: Advance as tolerated Coding Level of Care Code ED Tape Folding Machine Operator for Chg Fwd Documented by User: Mg Bustos DO 11/06/23 15:23 HPI - Abdominal Pain 2 General: Chief Complaint: Abdominal Pain Stated Complaint: abd pain/pt states eptopic preg. Time Seen by Provider: 11/04/23 22:30 PFSH ED 2 PFSH: Medical History (Updated 11/06/23 @ 15:23 by Mg Bustos DO) No pertinent past medical history neghx: htn,dm,thyroid,dvt/pe PCP: Juliette Mosley Surgical History (Updated 10/29/23 @ 09:50 by Radha Lynch APN, J CARLOS) H/O: Classical Family History Father Hypertension Diabetes Heart disease Hyperlipidemia Grandmother Colon cancer maternal Denies family history of Ovarian cancer Prostate cancer Dementia Breast cancer Uterine cancer Thyroid disease Stroke Course 2 Vital Signs: Vital signs: Vital Signs Temperature 98.1 F 11/06/23 12:00 Pulse Rate 82 11/06/23 12:00 Respiratory Rate 18 11/06/23 12:00 Blood Pressure 114/71 11/06/23 12:00 Pulse Oximetry 96 11/06/23 12:00 Oxygen Delivery Me thod Room Air 11/05/23 02:18 MDM - Abdominal Pain Medical Decision Making Patient was evaluated in the emergency department We obtained an ultrasound?pelvic and laboratory studies Hemoglobin and hematocrit remained stable. She does describe some vaginal bleeding but bleeding is not brisk The pelvic ultrasound appears to reveal changed stable inhomogeneous pelvic structure Dr. Whitmore was consulted to review. Awaiting his evaluation. Dr. Bustos will assume care This patient was initially evaluated by PRABHU Pearl. I agree with her history, evaluation, and treatment. Dr. Whitmore came to evaluate the patient and has determined she will require admission for close monitoring, pain control, and potentially surgical management. He is going to write admission orders. Lab Data 11/04/23 22:05 11/04/23 22:05 Labs/Radiology: Radiology Impressions Pelvis Ultrasound 11/04/23 22:26 IMPRESSION: 1. No intrauterine gestation identified. 2. Persistent 5.1 cm inhomogeneous structure posterior and inferior to the left ovary. This remains suspicious for a residual ectopic . No gestational sac or pole is visualized. Correlation with quantitative beta HCG values is recommended. 3. No free intraperitoneal blood visualized. Pelvic/Transvag US 11/06/23 07:00 IMPRESSION: 1. No visible intrauterine gestation. 2. Stable left adnexal mass. Possible ectopic . Neoplasm not excluded. Laboratory Results WBC 6.29 10^3/uL (3.29-11.43) 11/04/23 22:05 RBC 4.47 10^6/uL (3.85-5.65) 11/04/23 22:05 Hgb 13.00 g/dL (11.27-16.99) 11/04/23 22:05 Hct 40.4 % (36-47) 11/04/23 22:05 MCV 90.4 fl (85-98) 11/04/23 22:05 MCH 29.1 pg (27-33) 11/04/23 22:05 MCHC 32.2 g/dL (30-55) 11/04/23 22:05 RDW 12.8 % (12.1-15.1) 11/04/23 22:05 Plt Count 272 10^3/cmm (157-399) 11/04/23 22:05 MPV 11.1 fL (7.4-10.4) H 11/04/23 22:05 Neut % (Auto) 64.4 % 11/04/23 22:05 Lymph % (Auto) 25.0 % 11/04/23 22:05 [place] % (Auto) 6.7 % 11/04/23 22:05 Eos % (Auto) 3.3 % 11/04/23 22:05 Baso % (Auto) 0.3 % 11/04/23 22:05 Neut # (Auto) 4.05 10^3/uL (1.8-7.7) 11/04/23 22:05 Lymph # (Auto) 1.6 10^3/uL (0.8-4.8) 11/04/23 22:05 [place] # (Auto) 0.4 10^3/uL (0.2-0.9) 11/04/23 22:05 Eos # (Auto) 0.2 10^3/uL (0.0-0.8) 11/04/23 22:05 Baso # (Auto) 0.0 10^3/uL (0.0-0.1) 11/04/23 22:05 Nucleated RBC % (auto) 0 % 11/04/23 22:05 Nucleated RBCs # 0.0 /100WBC 11/04/23 22:05 Sodium 140 mmol/L (136-145) 11/04/23 22:05 Potassium 3.7 mmol/L (3.5-5.1) 11/04/23 22:05 Chloride 101 mmol/L (98-107) 11/04/23 22:05 Carbon Dioxide 27 mmol/L (22-29) 11/04/23 22:05 Anion Gap 15.7 (5-19) 11/04/23 22:05 BUN 7 mg/dL (6-20) 11/04/23 22:05 Creatinine 0.6 mg/dL (0.5-0.9) 11/04/23 22:05 GFR Calculation 116.6 mL/min (90-130) 11/04/23 22:05 Glucose 92 mg/dL (65-115) 11/04/23 22:05 Calculated Osmolality 288 mOsm/kg (285-295) 11/04/23 22:05 Lactic Acid 1.1 mmol/L (0.5-2.2) 11/04/23 22:05 Calcium 10.1 mg/dL (8.5-10.5) 11/04/23 22:05 Total Bilirubin 0.2 mg/dL (0.15-1.2) 11/04/23 22:05 AST 22 U/L (0-32) 11/04/23 22:05 ALT 36 U/L (0-33) H 11/04/23 22:05 Alkaline Phosphatase 56 U/L (35-105) 11/04/23 22:05 C-Reactive Protein 39.3 mg/L (0.0-4.9) H 11/04/23 22:05 Total Protein 8.0 g/dL (6.6-8.7) 11/04/23 22:05 Albumin 4.2 g/dL (3.5-5.2) 11/04/23 22:05 Globulin 3.8 g/dL (1.3-4.6) 11/04/23 22:05 Lipase 20 U/L (13-60) 11/04/23 22:05 Procalcitonin 0.10 ng/mL (0-0.5) 11/04/23 22:05 Ser , Semi-Qnt 2910.00 mIU/mL 11/04/23 22:05 Urine Color Yellow (Yellow) 11/04/23 22:48 Urine Appearance Cloudy (CLEAR) A 11/04/23 22:48 Urine pH 6 (5-7) 11/04/23 22:48 Ur Specific [place] 1.020 (1.005-1.030) 11/04/23 22:48 Urine Protein Trace (Negative) 11/04/23 22:48 Urine Glucose (UA) Norm (Normal) 11/04/23 22:48 Urine Ketones 1+ (Negative) H 11/04/23 22:48 Urine Blood 3+ (Negative) H 11/04/23 22:48 Urine Nitrate Negative (Negative) 11/04/23 22:48 Urine Bilirubin Neg (Negative) 11/04/23 22:48 Urine Urobilinogen Norm mg/dL (Negative) 11/04/23 22:48 Ur Leukocyte Esterase 1+ (Negative) H 11/04/23 22:48 Urine RBC 80-100 /hpf (0-2) H 11/04/23 22:48 Urine WBC 25-40 /hpf (0-5) H 11/04/23 22:48 Ur Squamous Epith Cells 5-10 /hpf (0-5) H 11/04/23 22:48 Amorphous Sediment 1+ /hpf 11/04/23 22:48 Urine Bacteria 1+ /hpf (NONE) H 11/04/23 22:48 Coarse Granular Casts 0-4 /lpf H 11/04/23 22:48 Urine Mucus 2+ /hpf 11/04/23 22:48 Blood Type O Negative 11/04/23 22:35 Rho(D) Type Negative 11/04/23 22:35 Antibody Screen Negative 11/04/23 22:35 Discharge Plan Discharge Patient Disposition: Admitted As Inpatient Admit Provider: Edmar Whitmore Clinical Impression: Ectopic of left ovary Condition: Stable Discharge Diet: Advance as tolerated Coding Level of Care Code ED Tape Folding Machine Operator for Lucy Lucio
[2023-11-04] MEDS: sodium chloride 0.9% 1,000 ML 999 ML IV (23:33)
[2023-11-04] MEDS: fentaNYL 50 mcg/mL INJ 2mL IVP (23:33)
[2023-11-04 23:57] VITALS: BP 119/72; PULSE 68; RESP 16; O2SAT 98
[2023-11-05] VITALS (26 sets, daily range): BP systolic 97–117; BP diastolic 53–80; PULSE 65–103; RESP 16–18; TEMP 36.3–37.1; O2SAT 93–100; BMI 37.5
[2023-11-05] MEDS: lactated ringers 1,000 ML 125 ML IV ×2 (02:35→10:54)
--- NOTE | 2023-11-05 04:04 | PM.OBGYHP ---
Providers/Chief Complaint Admitting Physician: Edmar Whitmore MD Primary TRANSFORMER REPAIRER: Kp Moe MD Primary Care Provider: PRABHU Donald Chief Complaint: abd pain/pt states eptopic preg. HPI TRANSFORMER REPAIRER History of Present Illness 33 y.o. was diagnosed with ectopic at approximately 6 weeks on October 30, 2023 treated conservatively with methotrexate has been having intermittent severe abdominal pain minimal vaginal bleeding no fever, chills, nausea, vomiting presented to ER with episode of abdominal pain Present Details : 2 Para: 1 Medications/Allergies Home Medications Medication Instructions Recorded Confirmed Last Taken Type hydrocodone 5 mg-acetaminophen 325 1 tab PO Q4H PRN pain 5 days #20 10/31/23 10/31/23 Unknown Rx mg tablet tabs Allergies Allergy/AdvReac Type Severity Reaction Status Date / Time No Known Allergies Allergy Verified 10/31/23 09:53 PFSH TRANSFORMER REPAIRER PFSH: Medical History (Updated 11/05/23 @ 04:09 by Edmar Whitmore MD) No pertinent past medical history neghx: htn,dm,thyroid,dvt/pe PCP: Juliette Mosley Surgical History (Updated 10/29/23 @ 09:50 by Radha Lynch APN, J CARLOS) H/O: Classical Family History Father Hypertension Diabetes Heart disease Hyperlipidemia Grandmother Colon cancer maternal Denies family history of Ovarian cancer Prostate cancer Dementia Breast cancer Uterine cancer Thyroid disease Stroke History History History 2 Term 0 1 Miscarriages/Ectopic 0 Living Children 1 Care TIN Calculator Estimated Delivery Date Method Current WG Current Estimate 06/21/24 LMP (Certain) 7w 2d Vitals/I&O/Wt Last Vital Signs Temp 97.3 F L 11/05/23 03:02 Pulse 82 11/05/23 03:20 Resp 16 11/05/23 03:01 BP 117/80 11/05/23 03:04 Pulse Ox 100 11/05/23 03:20 O2 Del Method Room Air 11/05/23 02:18 11/04/23 11/04/23 11/05/23 14:59 22:59 06:59 Intake Total 0 / 0 Balance 0 / 0 Weight last 48 hrs Weight 232 lb 15.999 oz Weight 233 lb Physical Exam Narrative: Weight 233 lbs comfortable, in no distress HEENT: normal Lungs: clear Cor: RRR Abd: soft, nondistended mild diffuse tenderness no rebound / guarding Ext: normal Data 11/04/23 22:05 11/04/23 22:05 Results Labs OB ([facility]): Blood Type O Negative 11/04/23 Antibody Screen Negative 11/04/23 Hct 40.4 % (36-47) 11/04/23 Hgb 13.00 g/dL (11.27-16.99) 11/04/23 Rho(D) Type Negative 11/04/23 Plt Count 272 10^3/cmm (157-399) 11/04/23 Ser , Semi-Qnt 2303.00 mIU/mL 10/31/23 HCG, Qual Positive (Negative) H 10/29/23 Micro Urine Specimen 11/04/23 REPROGRAPHICS ASSOCIATE Ultrasound pelvic sono 11-04-23 5 cm left ectopic gestation A&P Assessment and plan (1) Ectopic of left ovary: ectopic gestation, 5 cm received methotrexate now with intermittent abdominal pain plan admit possible laparoscopy (2) Rh negative status during : will give rhogam Attestations Medical Necessity Statement*: patient with ectopic gestation Coding Level of Care Code Acute Code for Chg Fwd Diagnoses Ectopic of left ovary O00.202 Rh negative status during O26.899; Z67.91 Time Spent (min) 45
--- NOTE | 2023-11-05 17:04 | P.HP_ITS ---
Providers/Chief Complaint 2 Admitting Physician: Edmar Whitmore MD Primary ROTARY RIG ENGINE OPERATOR: Kp Moe MD Primary Care Provider: PRABHU Donald Chief Complaint: abd pain/pt states eptopic preg. HPI ROTARY RIG ENGINE OPERATOR History of Present Illness Isabelle Buck is a 33 year old female established patient with an LMP of 09/15/23. Presents to ER with pelvic pain after treatment for ectopic with methotrexate. She is 7 2/7 weeks today. Present Details : 2 Para: 1 Review of Systems 2 General: Reports: 10 or more systems reviewed and unremarkable except in HPI and below Const: Denies: fever(s) or chills ENMT: Denies: throat pain Card: Denies: chest pain Resp: Denies: dyspnea, productive cough or non-productive cough GI: Denies: abdominal pain : Reports: vaginal bleeding (spotting) and pelvic pain (left side); Denies: flank pain, difficulty voiding, dysuria, urinary frequency, urinary urgency, urinary incontinence, genital lesions, genital pruritis, vaginal dryness, vaginal odor, vaginal discharge, dysmenorrhea, irregular period, metrorrhagia, amenorrhea, prolapse symptoms or dyspareunia Medications/Allergies Home Medications Medication Instructions Recorded Confirmed Last Taken Type hydrocodone 5 mg-acetaminophen 325 1 tab PO Q4H PRN pain 5 days #20 10/31/23 10/31/23 Unknown Rx mg tablet tabs Allergies Allergy/AdvReac Type Severity Reaction Status Date / Time No Known Allergies Allergy Verified 10/31/23 09:53 PFSH ROTARY RIG ENGINE OPERATOR 2 PFSH: Medical History (Updated 11/05/23 @ 17:15 by Kp Moe MD) No pertinent past medical history neghx: htn,dm,thyroid,dvt/pe PCP: Juliette Mosley Surgical History (Updated 10/29/23 @ 09:50 by Radha Lynch APN, J CARLOS) H/O: Classical Family History Father Hypertension Diabetes Heart disease Hyperlipidemia Grandmother Colon cancer maternal Denies family history of Ovarian cancer Prostate cancer Dementia Breast cancer Uterine cancer Thyroid disease Stroke History History History 2 2 Term 0 1 Miscarriages/Ectopic 0 Living Children 1 Care TIN Calculator 2 Estimated Delivery Date Method Current WG Current Estimate 06/21/24 LMP (Certain) 7w 2d Vitals/I&O/Wt Last Vital Signs Temp 98.8 F 11/05/23 15:10 Pulse 80 11/05/23 15:06 Resp 16 11/05/23 03:01 BP 109/75 11/05/23 15:06 Pulse Ox 99 11/05/23 15:05 O2 Del Method Room Air 11/05/23 02:18 11/05/23 11/05/23 11/05/23 06:59 14:59 22:59 Intake Total 0 / 0 1000 / 1000 Balance 0 / 0 1000 / 1000 Weight last 48 hrs Weight 105.687 kg Weight 105.687 kg Weight 105.687 kg Physical Exam 2 Const: COMMON NORMALS: no acute distress, average body habitus and patient oriented x3 GENERAL APPEARANCE: cooperative and well kempt HENMT: COMMON NORMALS: normocephalic and atraumatic HEAD & SCALP: n ormocephalic and atraumatic Neck/C-Spine: COMMON NORMALS: full ROM Chest: COMMONS NORMALS: normal inspection of the chest Resp: COMMON NORMALS: normal respiratory effort Cardio: COMMON NORMALS: regular rate and regular rhythm RATE: regular rate RHYTHM: regular rhythm GI: INSPECTION: Yes normal to inspection and No abdominal distension P ALPATION: Yes Soft to palpation, No Tenderness to palpation present (GI), No Guarding due to palpation present (GI) and No Rigid due to palpation Neuro: COMMON NORMALS: patient oriented x3 Psych: APPEARANCE: Yes well kempt Data 11/04/23 22:05 11/04/23 22:05 Results Labs OB ([facility]): 2 Blood Type O Negative 11/04/23 Antibody Screen Negative 11/04/23 Hct 40.4 % (36-47) 11/04/23 Hgb 13.00 g/dL (11.27-16.99) 11/04/23 Rho(D) Type Negative 11/04/23 Plt Count 272 10^3/cmm (157-399) 11/04/23 Ser , Semi-Qnt ▪ 2265.00 mIU/mL 3 HCG, Qual Positive (Negative) H 10/29/23 Micro Urine Specimen 11/04/23 EMPLOYMENT SERVICES DIRECTOR Labs Laboratory Tests 10/27/23 10/29/23 10/31/23 10:58 10:36 11:30 Ser , Semi-Qnt 1369.00 1469.00 2303.00 11/04/23 11/05/23 22:05 16:06 Ser , Semi-Qnt 2910.00 2265.00 EMPLOYMENT SERVICES DIRECTOR Ultrasound 1. No intrauterine gestation identified. 2. Persistent 5.1 cm inhomogeneous structure posterior and inferior to the left ovary. This remains suspicious for a residual ectopic . No gestational sac or pole is visualized. Correlation with quantitative beta HCG values is recommended. 3. No free intraperitoneal blood visualized. A&P Assessment and plan (1) Ectopic of left ovary: Mrs. Cortes 33-year-old female G2, P1 with an EGA at 7+2 weeks left ectopic treated with methotrexate. Came to emergency room with pelvic pain. Ultrasound shows no blood in cavity. Pain experienced by patient is a initial expected discomfort after methotrexate treatment. Quantitative hCG had an expected increase but he has started to decrease now. Will continue observation and admit for pain management and repeat ultrasound in the morning. (2) Rh negative status during : Qualifiers: Trimester: first trimester Qualified Code(s): O26.891 - Other specified related conditions, first trimester; Z67.91 - Unspecified blood type, Rh negative Attestations 2 Medical Necessity Statement*: My professional opinion per admitting diagnosis. Coding Level of Care Code Acute Code for Chg Fwd Diagnoses Ectopic of left ovary O00.202 Rh negative status during in first trimester O26.891; Z67.91 Trimester: first trimester
[2023-11-06 04:32] VITALS: BP 120/73; PULSE 92; TEMP 36.1
--- NOTE | 2023-11-06 07:00 | USR_ITS ---
PROCEDURE INFORMATION: Exam: US Pelvis, Transvaginal Exam date and time: 11/06/2023 7:47 AM Age: 33 years old Clinical indication: Abnormal findings; Abnormal radiologic study of abdomen/pelvis; ; Additional info: Ectopic, for tomorrow morning at 7 am TECHNIQUE: Imaging protocol: Real-time transvaginal pelvic ultrasound with image documentation. Transvaginal imaging was used for better evaluation of the endometrium, adnexa, and/or cervix. COMPARISON: US pelvic limited [id number] 11/04/2023 10:53 PM FINDINGS: Uterus: Uterine contours are normal. The fundal endometrium is thickened. Endometrial stripe thickness measures 13 mm. No fluid in the endometrial canal. Right ovary/adnexa: The right ovary is morphologically normal. The right ovary measures 2.4 x 2.3 x 1.9 cm for a volume of 5.4 cc. There is normal blood flow in the right ovary. Left ovary/adnexa: The left ovary contains a morphologically normal corpus luteum. There is normal blood flow in the left ovary. The left ovary measures approximately 3.0 x 2.4 x 1.9 cm. There is a heterogeneously hypoechoic solid mass intimately associated with the left ovary. The combined measurement of the left ovary and left adnexal mass is 5.8 x 5.4 x 5.0 cm. Internal blood flow is demonstrated in left ovary by color and spectral Doppler interrogation. No definite blood flow is demonstrated in the adjacent left adnexal mass on this exam, but blood flow was seen in the mass previously. Urinary bladder: Urinary bladder is unremarkable. Gestation: No intrauterine gestational sac. Intraperitoneal space: No intraperitoneal free fluid is visible. US/US pelv w/transvag [id number] IMPRESSION: 1. No visible intrauterine gestation. 2. Stable left adnexal mass. Possible ectopic . Neoplasm not excluded.
[2023-11-06] MEDS: ketorolac 30 mg/mL INJ IVP (07:33)
--- NOTE | 2023-11-06 11:15 | PM.SDS ---
Short Stay Summary Providers Date of Admit/Discharge: 11/06/23 Attending Provider: Edmar Whitmore MD Primary Care Provider: PRABHU Donald Chief Complaint: abd pain/pt states eptopic preg. HPI History of Present Illness Isabelle Buck is a 33 year old female with a left side ectopic preganacy came to ER with pelvic pain. She had received medical management with methotrexate. Review of Systems General: Reports: 10 or more systems reviewed and unremarkable except in HPI and below Const: Denies: fever(s) or chills ENMT: Denies: throat pain Card: Denies: chest pain Resp: Denies: dyspnea, productive cough or non-productive cough GI: Denies: abdominal pain : Reports: vaginal bleeding (spotting) and pelvic pain (left side); Denies: flank pain, difficulty voiding, dysuria, urinary frequency, urinary urgency, urinary incontinence, genital lesions, genital pruritis, vaginal dryness, vaginal odor, vaginal discharge, dysmenorrhea, irregular period, metrorrhagia, amenorrhea, prolapse symptoms or dyspareunia Home Meds/Allergies Home Medications and Allergies Allergies Allergy/AdvReac Type Severity Reaction Status Date / Time No Known Allergies Allergy Verified 10/31/23 09:53 PFSH Acute PFSH: Medical History (Updated 11/06/23 @ 11:22 by Kp Moe MD) No pertinent past medical history neghx: htn,dm,thyroid,dvt/pe PCP: Juliette Mosley Surgical History (Updated 10/29/23 @ 09:50 by Radha Lynch APN, J CARLOS) H/O: Classical Family History Father Hypertension Diabetes Heart disease Hyperlipidemia Grandmother Colon cancer maternal Denies family history of Ovarian cancer Prostate cancer Dementia Breast cancer Uterine cancer Thyroid disease Stroke Female Reproductive History: : 2 Vitals/I&O/Wt Last Vital Signs Temp 97.0 F L 11/06/23 04:32 Pulse 92 11/06/23 04:32 Resp 16 11/05/23 03:01 BP 120/73 11/06/23 04:32 Pulse Ox 99 11/05/23 15:05 O2 Del Method Room Air 11/05/23 02:18 Weight last 48 hrs Weight 105.687 kg Weight 105.687 kg Weight 105.687 kg Physical Exam Const: COMMON NORMALS: no acute distress, average body habitus and patient oriented x3 GENERAL APPEARANCE: cooperative and well [facility] HENMT: COMMON NORMALS: normocephalic and atraumatic HEAD & SCALP: normocephalic and atraumatic Neck/C-Spine: COMMON NORMALS: full ROM Chest: COMMONS NORMALS: normal inspection of the chest Resp: COMMON NORMALS: normal respiratory effort Cardio: COMMON NORMALS: regular rate and regular rhythm RATE: regular rate RHYTHM: regular rhythm GI: COMMON NORMALS: Soft to palpation INSPECTION: Yes normal to inspection and No abdominal distension PALPATION: Yes Soft to palpation, No Tenderness to palpation present (GI), No Guarding due to palpation present (GI) and No Rigid due to palpation Neuro: COMMON NORMALS: patient oriented x3 Psych: APPEARANCE: Yes well [facility] Hospital Course Hospital Course Mrs. Buck 33-year-old female G2, P1 with an EGA at 7+2 weeks left ectopic treated with methotrexate. Came to emergency room with pelvic pain. Ultrasound shows no blood in cavity. Pain experienced by patient is a initial expected discomfort after methotrexate treatment. Quantitative hCG had an expected increase but he has started to decrease now. She was admitted for observation and pain management and repeat ultrasound this morning show stable and no ebony of rupture. Repeat methotrexate dose given. Pain under control. SSS Data Data Completed and Pending: Completed Studies During Hospitalization Category Date Time Status US pelv w/transva g [id number] Rout ine Ultrasound 11/06/23 07:00 Completed US pelvic limited [id number] Stat Ultrasound 11/04/23 22:26 Completed Diagnoses at Discharge Discharge Diagnosis (1) Ectopic of left ovary: Status: Acute (2) Rh negative status during : Status: Acute Qualifiers: Trimester: first trimester Qualified Code(s): O26.891 - Other specified related conditions, first trimester; Z67.91 - Unspecified blood type, Rh negative Discharge Plan Discharge Patient Disposition: Home Condition: Stable Prescriptions: New acetaminophen 325 mg capsule 325 mg PO Q4H PRN (Reason: fever or pain) Qty: 60 0RF ketorolac 10 mg tablet 10 mg PO Q8H PRN (Reason: pain) 5 Days Qty: 45 0RF No Action hydrocodone-acetaminophen 5-325 mg tablet 1 tab PO Q4H PRN (Reason: pain) 5 Days Qty: 20 0RF Discharge Orders: Discharge Order (Routine); Ordered 11/06/23 Ordered By: Kp Moe Referrals: Radha Lynch APN, J CARLOS [Nurse Practitioner] - (You have an appointment at [facility] on Sunday November 12, 2023 at 1100 for HCG level. The clinic will be contacting you with an appointment time to see a provider.) Kp Moe MD [Physician] - 2 weeks Discharge Diet: Advance as tolerated Patient Instructions: Methotrexate (By injection), Ectopic (GEN), OB Discharge Report, Opioid Safety Attestations Medical Necessity Statement*: In my professional opinion per admitting diagnosis. Time Spent in Patient Care*: greater than 30 min Quality Metrics Clinical Quality Measures: [ No reported AMI, CVA or VTE this stay] Coding Level of Care Code Acute Code for Chg Fwd Diagnoses Ectopic of left ovary O00.202 Rh negative status during in first trimester O26.891; Z67.91 Trimester: first trimester
[2023-11-06 11:59] VITALS: BP 114/71; PULSE 82
[2023-11-06 12:00] VITALS: BP 114/71; PULSE 82; RESP 18; TEMP 36.7; O2SAT 96
== END 2023-11-06 12:00 | disposition home or self-care (01) ==
LOC: ER 23:30 → OBGYN 11-06 10:00
PROVIDERS: Emergency Medicine; Obstetrics & Gynecology; Admitting Provider Obstetrics & Gynecology; Emergency Provider Nurse Practitioner; PCP Nurse Practitioner Family; Visit Provider Obstetrics & Gynecology
DX: O00.202 Left ovarian pregnancy without intrauterine pregnancy (principal); O26.891 Other specified pregnancy related conditions, first trimester; Z67.91 Unspecified blood type, Rh negative
CPT/HCPCS: 36415; 36430; 76830; 76856; 76857; 80053; 81001; 83605; 83690; 84145; 84702; 85025; 86140; 86850; 86900; 87086; 90384; 96361; 96374; 96375; 96376; 99285; G0378; J1885; J2270; J2405; J3010; J7030; J7120; J9260

== ENCOUNTER → 2023-11-12 11:45 | Outpatient (BNVA) | payer MEDICAID, SELFPAY | PROVIDERS: PCP Nurse Practitioner Family; Visit Provider Obstetrics & Gynecology | DX: O20.0 Threatened abortion (principal); Z3A.00 Weeks of gestation of pregnancy not specified | CPT/HCPCS: 84702 ==

== ENCOUNTER → 2023-11-13 15:28 | Outpatient (BNVA) | payer MEDICAID, SELFPAY | PROVIDERS: PCP Nurse Practitioner Family; Visit Provider Obstetrics & Gynecology | DX: Z34.90 Encounter for supervision of normal pregnancy, unspecified, unspecified trimester (principal) | CPT/HCPCS: 76817; 84315 ==

== ENCOUNTER → 2023-11-19 12:55 | Outpatient (BNVA) | payer MEDICAID, SELFPAY | PROVIDERS: PCP Nurse Practitioner Family; Visit Provider Nurse Practitioner Women's Health | DX: Z34.90 Encounter for supervision of normal pregnancy, unspecified, unspecified trimester (principal) | CPT/HCPCS: 84702 ==

== ENCOUNTER → 2023-11-21 11:30 | Outpatient (BNVA) | payer MEDICAID, SELFPAY | PROVIDERS: PCP Nurse Practitioner Family; Visit Provider Obstetrics & Gynecology | DX: Z34.90 Encounter for supervision of normal pregnancy, unspecified, unspecified trimester (principal) | CPT/HCPCS: 84702; 85025 ==

== ENCOUNTER → 2023-11-26 14:00 | Outpatient (BNVA) | payer MEDICAID, SELFPAY | PROVIDERS: PCP Nurse Practitioner Family; Visit Provider Nurse Practitioner Women's Health | DX: Z34.90 Encounter for supervision of normal pregnancy, unspecified, unspecified trimester (principal) | CPT/HCPCS: 84702 ==

== ENCOUNTER → 2023-12-03 12:30 | Outpatient (BNVA) | payer MEDICAID, SELFPAY | PROVIDERS: PCP Nurse Practitioner Family; Visit Provider Nurse Practitioner Women's Health | DX: Z34.90 Encounter for supervision of normal pregnancy, unspecified, unspecified trimester (principal) | CPT/HCPCS: 84702 ==

== ENCOUNTER → 2023-12-10 12:10 | Outpatient (BNVA) | payer MEDICAID, SELFPAY | PROVIDERS: PCP Nurse Practitioner Family; Visit Provider Nurse Practitioner Women's Health | DX: Z34.90 Encounter for supervision of normal pregnancy, unspecified, unspecified trimester (principal) | CPT/HCPCS: 84702 ==

== ENCOUNTER 2024-08-26 08:07 | Emergency (ER) | payer OTHER, SELFPAY ==
[2024-08-26 08:18] VITALS: BP 123/70; PULSE 77; RESP 18; TEMP 37; O2SAT 98; BMI 37.9
[2024-08-26 08:21] VITALS: PULSE 77; O2SAT 97
--- NOTE | 2024-08-26 08:37 | W.ED.ANIMALB ---
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 Cat has not had a rabies vaccination. Patient's tetanus last 1 was 2016. No other injuries Associated symptoms: Deny chills or fever(s) Related Data Previous Rx's Medication Instructions Recorded acetaminophen 325 mg capsule 325 mg PO Q4H PRN fever or pain 11/06/23 #60 caps hydroxyzine HCl 10 mg tablet 10 mg PO .HS PRN anxiety #14 tabs 11/13/23 amoxicillin 875 mg-potassium 1 tab PO BID #14 tabs 08/26/24 clavulanate 125 mg tablet fluconazole 200 mg tablet 200 mg PO DAILY #3 tabs 08/26/24 (Diflucan) Allergies Allergy/AdvReac Type Severity Reaction Status Date / Time No Known Allergies Allergy Verified 11/21/23 11:07 Review of Systems Const: Denies: fever(s) or chills Skin/Breast: Denies: rash PFSH ED PFSH: Medical History No pertinent past medical history neghx: htn,dm,thyroid,dvt/pe PCP: Juliette Mosley Surgical History H/O: Classical Family History Father Hypertension Diabetes Heart disease Hyperlipidemia Grandmother Colon cancer maternal Denies family history of Ovarian cancer Prostate cancer Dementia Breast cancer Uterine cancer Thyroid disease Stroke Physical Exam Narrative: EXAM NARRATIVE: Examination of the left hand at the wrist there are 2 small puncture wounds no active bleeding no open wounds no lymphadenopathy no redness no erythema Course Vital Signs: Vital signs: Vital Signs Temperature 98.6 F 08/26/24 08:18 Pulse Rate 77 08/26/24 08:21 Respiratory Rate 18 08/26/24 08:18 Blood Pressure 123/70 08/26/24 08:18 Pulse Oximetry 97 08/26/24 08:21 Oxygen Delivery Me thod Room Air 08/26/24 08:18 MDM - Animal Bite Medical Decision Making Went through the options the patient observing the cat versus initiating rabies vaccine initially she said the cat was going to be spate at their office and they were going to observe it for signs of rabies we reviewed that with her that if the cat showed any signs of illness you need to come back for rabies when the nurse went to discharge her she was surprised that we were not giving her rabies vaccine. Went and reviewed with her again she thought I was talking about observing the cat and not giving the cat for rabies vaccine. Advised patient we do not give cats rabies vaccine in the emergency room but we do given to people. She would like to proceed with the rabies vaccine now. No radiology studies performed this visit Discharge Plan Discharge Patient Disposition: Home Clinical Impression: Cat bite Condition: Stable Prescriptions: New amoxicillin-pot clavulanate 875-125 mg tablet 1 tab PO BID Qty: 14 0RF fluconazole [Diflucan] 200 mg tablet 200 mg PO DAILY Qty: 3 0RF Rx Instructions: 1 q. OD if symptoms develop No Action hydroxyzine HCl 10 mg tablet 10 mg PO .HS PRN (Reason: anxiety) Qty: 14 0RF acetaminophen 325 mg capsule 325 mg PO Q4H PRN (Reason: fever or pain) Qty: 60 0RF Discharge Orders: Discharge ED (Routine); Ordered 08/26/24 Ordered By: Tj Valentine Referrals: Juliette Mosley FNP [Primary Care Provider] - Discharge Diet: Usual diet Discharge Activity: Resume usual activity Patient Instructions: Animal Bite (ED), Opioid Safety, Pain Management Activity Restrictions/Additional Instructions: Thank you for choosing [facility] for your healthcare needs today. It is very important that you follow up as instructed or that you return to the Emergency Department should you have concerns or if your condition changes or worsens in any way. You were seen today after being bitten by cat. You are given rabies immunoglobulin and first dose of vaccine here and should follow-up at the infusion clinic for subsequent rabies vaccinations on the schedule provided you at the time of discharge. You are given 1 week of Augmentin 1 tablet twice a day. You are also given 3 tablets of Diflucan if you develop vaginal yeast infection symptoms start Diflucan 1 every other day. Coding Level of Care Code ED Obstetrical Tech for Lucy Lucio
[2024-08-26] MEDS: rabies IG 300 unit/mL SDV 1 mL 2130 UNIT IM (09:01)
[2024-08-26] MEDS: rabies vaccine 2.5 unit SDV IM (09:15)
[2024-08-26 09:32] VITALS: BP 123/82; PULSE 78; O2SAT 98
== END 2024-08-26 09:32 | disposition home or self-care (01) ==
PROVIDERS: Emergency Provider Family Medicine; PCP Nurse Practitioner Family
DX: S61.452A Open bite of left hand, initial encounter (principal); W55.01XA Bitten by cat, initial encounter; Z29.14 Encounter for prophylactic rabies immune globulin; Z20.3 Contact with and (suspected) exposure to rabies; Z23 Encounter for immunization
CPT/HCPCS: 90375; 90675; 96372; 99283

== ENCOUNTER 2024-09-04 08:17 | Oncology outpatient (recurring) (ONCR) | payer OTHER, SELFPAY ==
[2024-08-31 13:13] VITALS: BP 123/52; PULSE 78; RESP 18; TEMP 36.4; O2SAT 98
[2024-08-31] MEDS: rabies vaccine 2.5 unit SDV IM (13:14)
[2024-09-04] MEDS: rabies vaccine 2.5 unit SDV IM (08:36)
== END 2024-09-10 23:59 | disposition home or self-care (01) ==
PROVIDERS: PCP Nurse Practitioner Family; Visit Provider Internal Medicine Hematology & Oncology
DX: Z23 Encounter for immunization (principal); Z20.3 Contact with and (suspected) exposure to rabies; S61.552A Open bite of left wrist, initial encounter; W55.01XA Bitten by cat, initial encounter; Z53.9 Procedure and treatment not carried out, unspecified reason
CPT/HCPCS: 90471; 90675

== ENCOUNTER → 2025-03-31 06:44 | Outpatient (BNVA) | payer SELFPAY | PROVIDERS: PCP Nurse Practitioner Family; Visit Provider Podiatrist Foot & Ankle Surgery | DX: M79.672 Pain in left foot (principal); M72.2 Plantar fascial fibromatosis | CPT/HCPCS: 73630 ==